=== PATIENT | female | born 1965 | race Caucasian/White ===

== ENCOUNTER 2017-08-07 15:53 | Emergency (ER) | payer OTHER ==
[~2017-08-07] VITALS: Ht 162.6 cm; Wt 56.2 kg
[2017-08-07] MEDS ORDERED: ULTRAM50 MG PO (16:27)
[2017-08-07] MEDS ORDERED: PREDNISONE10 MG PO (16:27)
[2017-08-07 16:32] VITALS: BP 128/72
== END 2017-08-07 16:33 | disposition home or self-care (01) ==
LOC: EME 15:53
DX: M54.12 Radiculopathy, cervical region (principal); M25.512 Pain in left shoulder; M62.838 Other muscle spasm; M79.602 Pain in left arm
CPT/HCPCS: 99281; 99283